=== PATIENT | male | born 1995 | race Caucasian/White ===

== ENCOUNTER 2019-10-08 02:47 | Emergency (ER) | payer SELFPAY ==
[~2019-10-08] VITALS: Ht 177.8 cm; Wt 68.0 kg
[2019-10-08 02:47] VITALS: BP_SYST 142
[2019-10-08 03:27] VITALS: BP_SYST 132
== END 2019-10-08 03:27 ==
LOC: SED 02:47
DX: S63.91XA Sprain of unspecified part of right wrist and hand, initial encounter (principal); F10.129 Alcohol abuse with intoxication, unspecified; Y90.9 Presence of alcohol in blood, level not specified; R03.0 Elevated blood-pressure reading, without diagnosis of hypertension; W22.01XA Walked into wall, initial encounter; Y93.89 Activity, other specified; Y92.89 Other specified places as the place of occurrence of the external cause; Y99.8 Other external cause status
CPT/HCPCS: 99283